=== PATIENT | female | born 1955 | race American Indian/Alaskan Native ===

== ENCOUNTER 2016-06-30 15:04 | Emergency (ER) | payer OTHER | END 2016-06-30 15:05 | disposition left against medical advice (07) | LOC: ED 15:04 | DX: R13.10 Dysphagia, unspecified (principal); Z53.21 Procedure and treatment not carried out due to patient leaving prior to being seen by health care provider ==

== ENCOUNTER 2016-11-17 06:22 | Day surgery (SDC) | payer MEDICARE, OTHER ==
[2016-11-17] MEDS ORDERED: ECOTRIN PO ONE (06:44)
[2016-11-17] MEDS ORDERED: NACL 0.9% 500 ML 500 ML IV SCH (07:00)
[2016-11-17 07:35] LABS: Basophils % (Auto) 0.7 % (0.0-1.8); Hematocrit 35.7 % (30.3-42.9); Hemoglobin 11.2 gm/dl (10.1-14.3); Mean Corpuscular HGB Conc 31 % (30-34); Mean Corpuscular Volume 77 fl (79-97); Platelet Count 237 K/mm3 (140-440); Red Blood Count 4.64 M/mm3 (3.65-5.03)
[2016-11-17 07:52] LABS: Anion Gap 14 mmol/L; BUN/Creatinine Ratio 18.88; Blood Urea Nitrogen 17 mg/dL (7-17); Calcium 9.7 mg/dL (8.4-10.2); Carbon Dioxide 29 mmol/L (22-30); Glucose 108 mg/dL (65-100); Potassium 4.4 mmol/L (3.6-5.0); Sodium 138 mmol/L (137-145)
[2016-11-17 07:53] LABS: INR 1.07 (0.87-1.13)
[2016-11-17 08:01] LABS: Mean Corpuscular Hemoglobin 24 pg (28-32)
[2016-11-17] MEDS ORDERED: NITROGLYCERIN SYRINGE 0 ML ONE (09:06)
[2016-11-17] MEDS ORDERED: CALAN ONE (09:06)
[2016-11-17] MEDS ORDERED: HEPARIN/NS 5000 UNIT/500ML(CATH LAB) 1,000 ML IR ONE (09:06)
[2016-11-17] MEDS ORDERED: XYLOCAINE 2% INFILTRATI ONE (09:06)
[2016-11-17] MEDS ORDERED: VERSED ONE (09:08)
[2016-11-17] MEDS: SUBLIMAZE ONE ×2 (09:15→09:18)
[2016-11-17] MEDS: HEPARIN 10,000 UNITS/10 ML ONE ×2 (09:17→09:20)
--- NOTE | 2016-11-17 10:37 | Cardiac Catherization Report ---
CARDIAC CATHETERIZATION INDICATION FOR PROCEDURE: The patient is a 60-year-old female with history of lupus and persistent chest pain with negative stress test in 2013 and 2013, continues to have chest pain, hence scheduled for cardiac catheterization for definitive diagnosis and treatment, pains have been mostly at rest while asleep. Her EKG showed sinus rhythm with low voltage complex. The patient's other diagnoses included in addition to lupus essential hypertension. The patient is aware of the procedure, potential complications, and the alternatives of therapy available. DESCRIPTION OF PROCEDURE: The patient was brought to the catheterization laboratory in a fasting condition. The right wrist area and forearm thoroughly cleansed with Betadine solution. Sterile drapes were applied. Local anesthesia was achieved using 2% Xylocaine. Right radial artery puncture was made using 21-gauge arterial puncture needle. Subsequently, 5 mg of intra-arterial verapamil and 3000 units of intravenous heparin given. Using multipurpose catheter, left coronary angiography was performed in multiple views followed by right coronary angiography in multiple views. Left ventriculogram was performed in [place] and [place] projection using hand injection. At the end of the procedure, catheter and sheath were removed. No untoward complications were noted. The patient tolerated the procedure well. Radial pressure bandage will be applied for hemostasis. Findings were explained to the patient. Following findings were noted. HEMODYNAMICS: 1. Opening aortic pressure 119/82. Left ventricular pressure 119/24. No gradient across the aortic valve. Estimated ejection fraction 50-55%, 2. Left ventriculogram done in [place] and [place] projection using hand injection showed normal sized left ventricle with essentially normal contractility, with mild hypokinesis of the inferoapical area. However, overall ejection fraction was found to be lower limits of normal, within normal limits. Mitral regurgitation could not be evaluated because of limited amount of dye injected. 3. Right coronary artery dominant vessel arises normally from right coronary cusp, angiographically smooth and normal. 4. Left coronary artery arises normally from left coronary cusp. Left main is very short, immediately dividing into LAD and circumflex branches. LAD and its diagonal branches and circumflex artery and branches are angiographically smooth and normal. FINAL IMPRESSION: 1. Normal sized left ventricle with normal contractility, ejection fraction lower limits of normal to normal. Elevated end diastolic pressure of 24 mL noted. 2. Angiographically normal coronary anatomy with caliber of the vessels being small. 3. Left ventricular ejection fraction is lower limits of normal to normal. End-diastolic pressure is elevated. 4. Right radial artery was used for access and no complications were noted. The patient will be continued on risk factor modification. JOB# [id number] VERONICA/QIAN
[2016-11-17] MEDS ORDERED: TYLENOL PO PRN (11:00)
[2016-11-17 12:24] VITALS: BP 108/80
--- NOTE | 2016-11-17 14:27 | Short Stay Summary ---
Short Stay Documentation Date of service: 11/17/16 - History H&P: obtained from office - Allergies and Medications Current Medications: Allergies Sulfa (Sulfonamide Antibiotics) Adverse Reaction (Verified 11/17/16 10:11) Rash, SWELLING OF THE TONGUE Home Medications Medication Instructions Recorded Confirmed Last Taken Type Cetirizine HCl [All Day Allergy] 10 mg PO DAILY 11/17/16 11/17/16 11/16/16 History Cyclobenzaprine [Flexeril] 1 - 2 tab PO DAILY 11/17/16 11/17/16 11/16/16 History Furosemide [Lasix TAB] 40 mg PO QDAY 11/17/16 11/17/16 11/16/16 History Gabapentin [Gabapentin] 300 mg PO TID 11/17/16 11/17/16 11/16/16 History Nortriptyline [Pamelor] 25 mg PO DAILY 11/17/16 11/17/16 11/16/16 History Prednisone [predniSONE (Martin) ER 5 mg PO QDAY 11/17/16 11/17/16 11/16/16 History TAB] Ranitidine HCl [Zantac 150 MG TAB] 150 mg PO BID 11/17/16 11/17/16 11/16/16 History cloNIDine [Catapres] 0.1 mg PO BID 11/17/16 11/17/16 11/16/16 History traMADol [Ultram] 50 mg PO BID PRN 11/17/16 11/17/16 11/16/16 History - Brief post op/procedure progress note Date of procedure: 11/17/16 Pre-op diagnosis: chest pain Post-op diagnosis: same Procedure: C - see cath report Anesthesia: local Estimated blood loss: none Condition: stable - Disposition Disposition: DC-01 TO HOME OR SELFCARE - Discharge Diagnoses (1) Chest pain Status: Chronic Qualifiers: Chest pain type: C Ischemic chest pain type: I (2) Hypertension Status: Chronic Qualifiers: Hypertension type: H (3) Lupus Status: Chronic Qualifiers: Lupus erythematosus form: L Systemic lupus erythematosus type: S Systemic lupus erythematosus organ involvement: S Short Stay Discharge Plan Activity: advance as tolerated Diet: low fat, low cholesterol, low salt Wound: open to air, keep clean and dry Follow up with: WILLIS GRIFFITHS MD [Staff Physician] - 7 Days (Meena, 11/30/2016 @ 15: 15) Forms: Cindy PCI D/C Instructions
== END 2016-11-17 12:45 | disposition home or self-care (01) ==
LOC: CATHLABREC 06:22
PROVIDERS: ATTEND Internal Medicine
DX: R07.9 Chest pain, unspecified (principal); R94.39 Abnormal result of other cardiovascular function study; I10 Essential (primary) hypertension; Z88.2 Allergy status to sulfonamides; Z98.890 Other specified postprocedural states; Z72.89 Other problems related to lifestyle
CPT/HCPCS: 36415; 80048; 85025; 85610; 85730; 93005; 93010; 93458; C1894; J1644; J2250; J3010; J7040; Q9967

== ENCOUNTER 2017-04-09 08:52 | Emergency (ER) | payer MEDICARE ==
[2017-04-09] MEDS ORDERED: ASPIRIN PO ONE (09:18)
[2017-04-09 09:35] LABS: Basophils % (Auto) 0.8 % (0.0-1.8); Eosinophils # (Auto) 0.2 K/mm3 (0.0-0.4); Eosinophils % (Auto) 4.7 % (0.0-4.3); Hematocrit 36.8 % (30.3-42.9); Hemoglobin 11.6 gm/dl (10.1-14.3); Lymphocytes # (Auto) 1.4 K/mm3 (1.2-5.4); Lymphocytes % (Auto) 33.7 % (13.4-35.0); Mean Corpuscular HGB Conc 32 % (30-34); Mean Corpuscular Volume 77 fl (79-97); Monocytes # (Auto) 0.4 K/mm3 (0.0-0.8); Monocytes % (Auto) 8.7 % (0.0-7.3); Platelet Count 257 K/mm3 (140-440); Red Blood Count 4.77 M/mm3 (3.65-5.03); Red Cell Distribution Width 14.5 % (13.2-15.2)
[2017-04-09 09:39] LABS: Mean Corpuscular Hemoglobin 24 pg (28-32)
[2017-04-09 10:00] LABS: BUN/Creatinine Ratio 19; Blood Urea Nitrogen 17 mg/dL (7-17); Calcium 9.8 mg/dL (8.4-10.2); Hemolysis Index 2
== END 2017-04-10 02:30 | disposition left against medical advice (07) ==
LOC: ED 08:52
DX: R07.9 Chest pain, unspecified (principal); Z53.21 Procedure and treatment not carried out due to patient leaving prior to being seen by health care provider
CPT/HCPCS: 36415; 80048; 84484; 85025; 93005; 93010

== ENCOUNTER 2017-07-07 13:00 | Inpatient (IN) | payer MEDICARE ==
--- NOTE | 2017-07-07 17:15 | Anesthesia Consultation ---
Anesthesia Consult and Med Hx - Airway Anesthetic Teeth Evaluation: Dentures ROM Head & Neck: Adequate Mental/Hyoid Distance: Adequate Mallampati Class: Class III Intubation Access Assessment: Possibly Difficult - Pulmonary Exam CTA: Yes - Cardiac Exam Cardiac Exam: RRR - Pre-Operative Health Status ASA Pre-Surgery Classification: ASA3 Proposed Anesthetic Plan: General Nerve Block: Femoral (no previous anesthesia problems; discussed general anesthesia with block for post-op pain; the surgeon prefers relaxation) - Pulmonary Hx Smoking: No Hx Pneumonia: Yes (03/2017) Hx Sleep Apnea: No (TERRY PRE SCREEN HIGH RISK.) - Cardiovascular System Hx Hypertension: Yes (X 20 YRS) - Central Nervous System Hx Neuromuscular Disorder: No (has fibromyalgia and lupus) Hx Back Pain: Yes (NECK AND BACK PAIN) Hx Psychiatric Problems: No - Endocrine Hx Renal Disease: Yes (CKD) - Hematic Hx Anemia: Yes - Other Systems Hx Cancer: No
[2017-07-14] MEDS ORDERED: ANCEF/STERILE WATER 2 GM/20 ML IV NR (00:01)
[2017-07-14] MEDS ORDERED: VERSED IV NR (07:00)
[2017-07-14] MEDS ORDERED: PEPCID IV NR (07:00)
[2017-07-14] MEDS ORDERED: NACL ONE (10:32)
[2017-07-14] MEDS ORDERED: MARCAINE 0.25% INFILTRATI ONE ×2 (10:32→15:45)
[2017-07-14] MEDS ORDERED: POLYMYXIN B SULFATE IV ONE (10:32)
[2017-07-14] MEDS ORDERED: NACL 0.9% 250ML 250 ML ONE (10:33)
[2017-07-14] MEDS ORDERED: BACITRACIN ONE (10:33)
[2017-07-14] MEDS ORDERED: CLORPACTIN WCS-90 IR ONE ×2 (10:33→15:45)
[2017-07-14] MEDS ORDERED: MORPHINE ONE ×2 (10:33→15:42)
[2017-07-14] MEDS ORDERED: XYLOCAINE 1%/ EPI 1:100,000 INFILTRATI ONE (10:34)
[2017-07-14] MEDS ORDERED: TORADOL ONE (10:37)
[2017-07-14] MEDS: NACL 0.9% 1000 ML 1,000 ML IV SCH ×2 (13:00→23:25)
[2017-07-14] MEDS ORDERED: DECADRON ONE ×2 (13:04→16:01)
[2017-07-14] MEDS ORDERED: SUBLIMAZE ONE (13:05)
[2017-07-14] MEDS ORDERED: DIPRIVAN 10 MG/ML IV ONE (13:25)
[2017-07-14] MEDS ORDERED: XYLOCAINE MPF 2% ONE (13:25)
[2017-07-14] MEDS ORDERED: ZEMURON IV ONE (13:25)
[2017-07-14] MEDS ORDERED: DILAUDID ONE (13:28)
[2017-07-14] MEDS ORDERED: TRANEXAMIC ACID ONE (13:39)
[2017-07-14] MEDS ORDERED: NACL 0.9% 200 ML ONE (13:40)
[2017-07-14] MEDS ORDERED: DILAUDID IV PRN (13:44)
--- NOTE | 2017-07-14 13:44 | Anesthesia Consultation ---
Anesthesia Consult and Med Hx Date of service: 07/14/17 - Airway Anesthetic Teeth Evaluation: Edentulous ROM Head & Neck: Adequate Mental/Hyoid Distance: Adequate Mallampati Class: Class III Intubation Access Assessment: Possibly Difficult - Pulmonary Exam CTA: Yes - Cardiac Exam Cardiac Exam: RRR - Pre-Operative Health Status ASA Pre-Surgery Classification: ASA3 Proposed Anesthetic Plan: General (Pt desaturated in Preop area with versed and fentanyl in low 90's on 2LNC. Ga with LMA ok. GERD controlled) - Pulmonary Hx Smoking: No Hx Pneumonia: Yes (03/2017) Hx Sleep Apnea: No (TERRY PRE SCREEN HIGH RISK.) - Cardiovascular System Hx Hypertension: Yes (X 20 YRS) - Central Nervous System Hx Neuromuscular Disorder: No (has fibromyalgia and lupus) Hx Back Pain: Yes (NECK AND BACK PAIN) Hx Psychiatric Problems: No - Endocrine Hx Renal Disease: Yes (CKD) - Hematic Hx Anemia: Yes - Other Systems Hx Cancer: No
--- NOTE | 2017-07-14 13:44 | Anesthesia Day of Surgery ---
Anesthesia Day of Surgery - Day of Surgery Patient Examined: Yes Patient H&P Reviewed: Yes Patient is NPO: Yes
--- NOTE | 2017-07-14 13:47 | Anesthesia Day of Surgery ---
Anesthesia Day of Surgery - Day of Surgery Patient Examined: Yes Patient H&P Reviewed: Yes Patient is NPO: Yes
[2017-07-14] MEDS ORDERED: TRAMADOL 50 MG PO PRN (14:48)
[2017-07-14] MEDS ORDERED: CATAPRES PO PRN (14:48)
[2017-07-14] MEDS ORDERED: PHENERGAN PR PRN (14:53)
[2017-07-14] MEDS ORDERED: NARCAN 0.4 MG/1 ML IV PRN ×3 (14:53→17:33)
[2017-07-14] MEDS ORDERED: ZOFRAN IV PRN (14:53)
[2017-07-14] MEDS ORDERED: SODIUM CHLORIDE FLUSH SYRINGE 10 ML IV SCH (15:00)
[2017-07-14] MEDS ORDERED: MIRALAX 3350 PO PRN (15:44)
[2017-07-14] MEDS ORDERED: BACITRACIN IR ONE (15:45)
[2017-07-14] MEDS ORDERED: MORPHINE IM ONE (15:45)
[2017-07-14] MEDS ORDERED: NACL 0.9% 1000 ML 1,000 ML ONE (16:02)
[2017-07-14] MEDS ORDERED: ZOFRAN ONE (17:13)
[2017-07-14] MEDS ORDERED: ROBINUL ONE (17:37)
[2017-07-14] MEDS ORDERED: NEOSTIGMINE ONE (17:38)
[2017-07-14] MEDS ORDERED: MORPHINE PCA 30MG/30ML IV SCH (18:00)
[2017-07-14] MEDS ORDERED: DILAUDID IM PRN (18:32)
[2017-07-14] MEDS ORDERED: ceFAZolin 2 GM in NACL 0.9% 100 ML IV SCH (22:00)
[2017-07-14] MEDS ORDERED: NON-FORMULARY (Ranitidine Hcl [Zantac 150 Mg Tab] 150 MG) PO SCH (22:00)
--- NOTE | 2017-07-14 22:44 | XRay Report ---
FINAL REPORT PROCEDURE: XR KNEE 1-2V RT TECHNIQUE: RIGHT knee radiographs, AP and lateral views. CPT 45962 HISTORY: POSTOP COMPARISON: No prior studies are available for comparison. FINDINGS: A total knee prosthesis is noted with satisfactory alignment. Air is identified in the suprapatellar region consistent with recent surgery. IMPRESSION: Satisfactory alignment of the knee prosthesis.
[2017-07-14] MEDS: NEURONTIN PO SCH (23:05)
[2017-07-14] MEDS: PEPCID PO SCH (23:05)
[2017-07-14] MEDS: COLACE PO SCH (23:06)
[2017-07-14] MEDS: NORCO 10/325 PO PRN (23:08)
[2017-07-14] MEDS: ANCEF/STERILE WATER 2 GM/20 ML 2 GM/20 ML SYRINGE IV SCH (23:39)
[2017-07-15] MEDS: ANCEF/STERILE WATER 2 GM/20 ML 2 GM/20 ML SYRINGE IV SCH ×2 (04:22→22:19)
[2017-07-15] MEDS: NORCO 10/325 PO PRN ×3 (04:46→22:14)
--- NOTE | 2017-07-15 05:07 | Operative Report ---
PREOPERATIVE DIAGNOSES: 1. Severe advanced osteoarthritis, right knee joint. 2. Genu valgum deformity. 3. Stiff right knee joint. POSTOPERATIVE DIAGNOSES: 1. Severe advanced osteoarthritis, right knee joint. 2. Genu valgum deformity. 3. Stiff right knee joint. 4. Morbid obesity. PROCEDURES PERFORMED: 1. Right total knee replacement. 2. Partial synovectomy, right knee joint. SURGEON: Familia Mittal M.D. [employer]UDIES PROFESSOR: Regino Ackerman, operative tech and Aletha Velez, heat transfer technician. IMPLANTS USED: Castellano and Nephew Legion Oxinium femoral component, size 6 narrow right side, prolong Poly-S, tibial tray size 5 asymmetric tibial base plate. Polyethylene liner 9 mm highly cross-linked posterior stabilized. Patella 32 mm, 3 post height, 7.5 mm thick. BRIEF HISTORY: The patient had a painful arthritic right knee, failed conservative treatment, opted to undergo surgical intervention, risks and benefit discussed, informed consent obtained, and brought to the hospital for the above procedure. DETAILS OF THE OPERATIVE REPORT: The patient was taken to the operating, who underwent general endotracheal anesthesia. Before general endotracheal anesthesia all the bony prominences were carefully padded, placed supine on the operating table. Thigh tourniquet was placed. Right knee, right lower extremity prepped and draped in sterile fashion. Leg elevated, tourniquet inflated to 350 mmHg. The patient was given 2 grams Ancef half an hour before the procedure along with a gram of TXA 10 minutes before the incision. A longitudinal incision made over anterior aspect of the knee, exposing the extensor mechanism. Arthrotomy was performed. Patella displaced laterally. Gross finding revealed severe advanced degenerative arthritis, tricompartmental with synovial hypertrophy proliferation. Capsular release was performed to correct the fixed angular deformity. However, no medial release was performed only just a minimal release to put the Z-retractor in place to protect the collateral ligament on the medial side. A drill was used to open the femoral canal. Distal intramedullary femoral cutting guide was placed. Distal femur resected at 5 degree valgus angle. Epicondylar access apex determined. Femoral sizing guide was placed, appropriate components selected. Anteroposterior condyles were then resected with oscillating saw. Extramedullary tibial cutting guide was placed, proximal tibia resected perpendicular to the long axis of tibia. Minimum bone resection was performed. Tightness on the lateral side was encountered and the capsule was released on the lateral side of the tibia, which helped to balance the knee in flexion and extension on the lateral side. Once this was done, tibia was then prepared by tibial reaming and broach system by placing the tibial tray in proper position, proper external rotation and packed in place. Excess cement was removed. Femur was then prepared for a box with Castellano and Nephew trial femur using reaming and punch technique. Patella was prepared with patellar reaming system prepared for 3 post-patella. Synovium around the patella was excised. Prepatellar thickness 22 mm. Post-patellar thickness somewhere between 21 mm to 22 mm. Trialing was performed with 9 poly with great stability, full extension, full flexion, stable throughout range of motion. Patella tracked central. We trialed with regular ____ in a semi-constrained liner. We had much better stability given her valgus deformity and minimal stretched out medial side. We had great stability, full extension, full flexion, stable throughout range of motion. Trial components were then removed, thoroughly washed the knee area with antibiotic-soaked normal saline followed by normal saline and Clorpactin irrigation as well and covered by normal saline irrigation. Significant sclerotic proximal lateral tibia and lateral femur and for that drill holes were made with 2.5 drill. The patient had a hypoplastic lateral femoral condyle and we used about 5-degree external rotation on the femoral side as well. Once thorough washing was performed, cementing of the knee was performed. Tibia was cemented first, set in proper position, proper external rotation and packed in place. Excess cement was removed. Femur was then cemented in proper position, proper external rotation and packed in place. Excess cement was removed. Cementing of the patella was performed and compression placed. Excess cement was removed. Trial liner was then placed, once the cement was hardened, real tibial articulating surface was implanted. Knee moved through range of motion and found to be extremely stable. Tourniquet released. Hemostasis achieved. No active bleeder as such. Arthrotomy closed with a #2 Quill suture and 0 Vicryl interrupted sutures. Subcutaneous tissue was then closed with 0 and 2-0 Vicryl interrupted suture. Skin was closed with Monocryl. Aquacel dressing done. The patient tolerated the procedure well, shifted to the recovery room in stable condition. Sponge and needle count was correct. JOB# [id number] KATHERIN/QIAN
[2017-07-15 05:09] LABS: Hematocrit 34.4 % (30.3-42.9); Hemoglobin 10.7 gm/dl (10.1-14.3)
[2017-07-15 05:22] LABS: INR 1.05 (0.87-1.13)
[2017-07-15 05:26] LABS: BUN/Creatinine Ratio 16; Blood Urea Nitrogen 13 mg/dL (7-17); Calcium 8.5 mg/dL (8.4-10.2); Hemolysis Index 4
[2017-07-15] MEDS: NEURONTIN PO SCH ×3 (08:09→22:18)
[2017-07-15] MEDS ORDERED: [UNRECOGNIZED DRUG - OTHER] PO SCH (10:00)
[2017-07-15] MEDS ORDERED: NON-FORMULARY (Fexofenadine Hcl [Allegra Allergy] 180 MG) PO SCH (10:00)
[2017-07-15] MEDS ORDERED: FERROUS SULFATE 324 MG PO SCH (10:00)
[2017-07-15] MEDS ORDERED: NON-FORMULARY (Losartan/Hydrochlorothiazide [Losartan-Hctz 100-25 Mg Tab] 1 EACH) PO SCH (10:00)
[2017-07-15] MEDS ORDERED: NON-FORMULARY (Duloxetine Hcl [Cymbalta] 60 MG) PO SCH (10:00)
[2017-07-15] MEDS: CYMBALTA PO SCH (10:22)
[2017-07-15] MEDS: COZAAR PO SCH (10:28)
[2017-07-15] MEDS: CLARITIN PO SCH (10:29)
[2017-07-15] MEDS: PEPCID PO SCH ×2 (10:38→22:15)
[2017-07-15] MEDS: FEOSOL PO SCH (10:38)
[2017-07-15] MEDS: LASIX PO SCH (10:38)
[2017-07-15] MEDS: ELIQUIS PO SCH ×2 (10:39→22:15)
[2017-07-15] MEDS: PAMELOR PO SCH (10:39)
[2017-07-15] MEDS: COLACE PO SCH ×2 (10:40→22:15)
[2017-07-15] MEDS: MIRALAX 3350 PO SCH (10:41)
[2017-07-15] MEDS: HCTZ PO SCH (11:28)
--- NOTE | 2017-07-15 12:54 | Progress Note ---
Subjective Date of service: 07/15/17 Interval history: pod1, s/p TKA right side, No comaplints AVSS, NVI DRESSING DRY PATIENT tends to keep the knee bend and i taught her to keep pillow under the ankle and do posterior capsular /hamstring stretch for knee extension, and she was able to get it to full extension. Patient comlimented me today saying that i did a very good job on her. Bree Causey to see the patient DC plan only once clear by medicine and PT Objective - Constitutional Vitals: Vital Signs - 12hr 07/15/17 07/15/17 07/15/17 01:55 03:55 04:34 Temperature 98.7 F Pulse Rate 102 H Respiratory 18 18 18 Rate Blood Pressure 127/85 [Right] O2 Sat by Pulse 100 Oximetry 07/15/17 07/15/17 07/15/17 05:55 07:55 08:00 Temperature 98.8 F Pulse Rate 89 Respiratory 18 18 20 Rate Blood Pressure 111/74 [Right] O2 Sat by Pulse 97 Oximetry 07/15/17 12:00 Temperature 98.6 F Pulse Rate 108 H Respiratory 20 Rate Blood Pressure 149/71 [Right] O2 Sat by Pulse 94 Oximetry - Labs CBC & Chem 7: 07/15/17 04:33 07/15/17 04:33 Labs: Abnormal lab results 07/15/17 Range/Units 04:33 Sodium 135 L (137-145) mmol/L Glucose 143 H (65-100) mg/dL
[2017-07-15] MEDS ORDERED: NACL 0.9% 1000 ML 1,000 ML ONE (13:30)
[2017-07-15] MEDS: NACL 0.9% 1000 ML 1,000 ML IV SCH (13:44)
--- NOTE | 2017-07-15 19:49 | Consultation ---
History of Present Illness - Reason for Consult Consult date: 07/15/17 medical management Requesting physician: CANDELARIO HOGAN - History of Present Illness History of present illness: 61-year-old -English female--- status post right total knee arthroplasty --- postop doing well. Complains of dry mouth. Patient has Sjogren syndrome. No shortness of breath no chest pain. Postop knee pain is about 6 on a scale of 1-10. No fever. Past History Past Medical History: anemia, hypertension, other (constipation. Edema allergy rhinitis) Past Surgical History: total knee replacement Social history: lives with family, full code Family history: hypertension Medications and Allergies Allergies Allergy/AdvReac Type Severity Reaction Status Date / Time Sulfa (Sulfonamide AdvReac Rash, Verified 11/17/16 10:11 Antibiotics) SWELLING OF THE TONGUE Home Medications Medication Instructions Recorded Confirmed Last Taken Type Cyclobenzaprine [Flexeril] 1 - 2 tab PO PRN PRN 11/17/16 07/06/17 11/16/16 History Furosemide [Lasix TAB] 40 mg PO QDAY 11/17/16 07/06/17 11/16/16 History Gabapentin 600 mg PO TID 11/17/16 07/14/17 07/13/17 16:00 History Nortriptyline [Pamelor] 25 mg PO DAILY 11/17/16 07/14/17 07/13/17 09:00 History Prednisone [predniSONE (Martin) ER 5 mg PO QDAY 11/17/16 07/14/17 06/30/17 09:00 History TAB] Ranitidine HCl [Zantac 150 MG TAB] 150 mg PO BID 11/17/16 07/14/17 07/12/17 09: 00 History cloNIDine [Catapres] 0.1 mg PO PRN PRN 11/17/16 07/14/17 07/12/17 09:00 History traMADol [Ultram] 50 mg PO PRN PRN 11/17/16 07/14/17 07/12/17 09:00 History Aspirin/Acetaminophen/Caffeine 1 each PO DAILY 07/06/17 07/14/17 06/30/17 09:00 History [Kylah's Ex-Str Powder Packet] Ferrous Sulfate 324 mg PO DAILY 07/06/17 07/14/17 07/06/17 09:00 History Fexofenadine HCl [[place] Allergy] 180 mg PO DAILY 07/06/17 07/06/17 Unknown History Docusate Sodium [Stool Softener] 100 mg PO BID 07/07/17 07/07/17 Unknown History Duloxetine HCl [Cymbalta] 60 mg PO DAILY 07/07/17 07/14/17 07/12/17 09:00 History Losartan/Hydrochlorothiazide 1 each PO DAILY 07/07/17 07/14/17 07/14/17 10:00 History [Losartan-Hctz 100-25 mg Tab] Polyethylene Glycol 3350 1,700 gm PO DAILY 07/07/17 07/14/17 Unknown History [Laxaclear] Active Meds: Active Medications Acetaminophen/Hydrocodone Bitart (Folcroft 10/325) 1 each PO Q4H PRN PRN Reason: Pain, Moderate (4-6) Last Admin: 07/15/17 09:41 Dose: 1 each Apixaban (Eliquis) 2.5 mg PO Q12HR [facility]; Protocol Last Admin: 07/15/17 10:39 Dose: 2.5 mg Clonidine HCl (Catapres) 0.1 mg PO BID PRN PRN Reason: Hypertension Docusate Sodium (Colace) 100 mg PO BID [facility] Last Admin: 07/15/17 10:40 Dose: 100 mg Duloxetine HCl (Cymbalta) 60 mg PO QDAY [facility] Last Admin: 07/15/17 10:22 Dose: 60 mg Famotidine (Pepcid) 20 mg IV PREOP NR Stop: 07/15/17 23:59 Last Admin: 07/14/17 13:03 Dose: 20 mg Famotidine (Pepcid) 20 mg PO BID [facility] Last Admin: 07/15/17 10:38 Dose: 20 mg Ferrous Sulfate (Feosol) 325 mg PO QDAY [facility] Last Admin: 07/15/17 10:38 Dose: 325 mg Furosemide (Lasix) 40 mg PO QDAY [facility] Last Admin: 07/15/17 10:38 Dose: 40 mg Gabapentin (Neurontin) 600 mg PO TID [facility] Last Admin: 07/15/17 13:43 Dose: 600 mg Hydrochlorothiazide (Hctz) 25 mg PO QDAY [facility] Last Admin: 07/15/17 11:28 Dose: Not Given Hydromorphone HCl (Dilaudid) 0.5 mg IM Q10MIN PRN PRN Reason: Pain , Severe (7-10) Sodium Chloride (Nacl 0.9% 1000 Ml) 1,000 mls @ 100 mls/hr IV DIRECT JENNIFER Stop: 07/15/17 23:59 Last Admin: 07/15/17 13:44 Dose: 100 mls/hr Loratadine (Claritin) 10 mg PO DAILY [facility] Last Admin: 07/15/17 10:29 Dose: Not Given Losartan Potassium (Cozaar) 100 mg PO QDAY [facility] Last Admin: 07/15/17 10:28 Dose: 100 mg Midazolam HCl (Versed) 2 mg IV PREOP NR Stop: 07/15/17 23:59 Morphine Sulfate (Morphine Spring Clipper 30mg/30ml) 0 mg IV DIRECT JENNIFER; Protocol Last Admin: 07/14/17 19:55 Dose: 1.5 cartstart Naloxone HCl (Narcan 0.4 Mg/1 Ml) 0.1 mg IV Q2MIN PRN PRN Reason: Res Rate </= 8 or 02 SAT < 92% Naloxone HCl (Narcan 0.4 Mg/1 Ml) 0.1 mg IV Q2MIN PRN PRN Reason: Res Rate </= 8 or 02 SAT < 92% Nortriptyline HCl (Pamelor) 25 mg PO DAILY [facility] Last Admin: 07/15/17 10:39 Dose: 25 mg Ondansetron HCl (Zofran) 4 mg IV Q8H PRN PRN Reason: Nausea And Vomiting Polyethylene Glycol (Miralax 3350) 17 gm PO QDAY [facility] Last Admin: 07/15/17 10:41 Dose: 17 gm Promethazine HCl (Phenergan) 25 mg [place] Q6H PRN PRN Reason: Nausea And Vomiting Sodium Chloride (Sodium Chloride Flush Syringe 10 Ml) 10 ml IV PRN [facility] Review of Systems All systems: negative Exam - Constitutional Vitals: Temp Pulse Resp BP Pulse Ox 98.9 F 102 H 20 131/76 98 07/15/17 15:00 07/15/17 15:00 07/15/17 15:00 07/15/17 15:00 07/15/17 15:00 General appearance: Present: no acute distress, well-nourished - EENT Eyes: Present: PERRL ENT: hearing intact, clear oral mucosa - Neck Neck: Present: supple, normal ROM - Respiratory Respiratory effort: normal Respiratory: bilateral: CTA - Cardiovascular Heart rate: 78 Rhythm: regular Heart Sounds: Present: S1 & S2. Absent: rub, click - Extremities Extremities: no ischemia, pulses intact, pulses symmetrical, No edema, abnormal (right knee range of motion limited secondary to total knee arthroplasty at this point) Peripheral Pulses: within normal limits - Abdominal General gastrointestinal: Present: soft, non-tender, non-distended, normal bowel sounds Female genitourinary: Present: normal - Integumentary Integumentary: Present: clear, warm, dry - Musculoskeletal Musculoskeletal: gait normal, strength equal bilaterally - Psychiatric Psychiatric: appropriate mood/affect, intact judgment & insight - Neurologic Neurologic: CNII-XII intact, moves all extremities Results - Labs CBC & Chem 7: 07/15/17 04:33 07/15/17 04:33 Labs: Abnormal lab results 07/15/17 Range/Units 04:33 Sodium 135 L (137-145) mmol/L Glucose 143 H (65-100) mg/dL Assessment and Plan - Patient Problems (1) Hypertension Current Visit: No Status: Chronic Qualifiers: Hypertension type: essential hypertension Qualified Code(s): I10 - Essential (primary) hypertension Plan to address problem: Continue losartan and hydrochlorothiazide (2) GERD (gastroesophageal reflux disease) Current Visit: Yes Status: Chronic Qualifiers: Esophagitis presence: without esophagitis Qualified Code(s): K21.9 - Gastro -esophageal reflux disease without esophagitis Plan to address problem: Continue ranitidine 150 twice a day (3) Depression Current Visit: Yes Status: Chronic Qualifiers: Depression Type: unspecified Qualified Code(s): F32.9 - Major depressive disorder, single episode, unspecified Plan to address problem: Continue Cymbalta 60 mg once a day (4) Allergic rhinitis Current Visit: Yes Status: Chronic Qualifiers: Allergic rhinitis trigger: pollen Allergic rhinitis seasonality: non- seasonal Qualified Code(s): J30.1 - Allergic rhinitis due to pollen Plan to address problem: Continue fexofenadine 180 mg once a day (5) Pedal edema Current Visit: Yes Status: Chronic Plan to address problem: continue Lasix. We will add potassium. (6) History of total knee arthroplasty Current Visit: Yes Status: Acute Qualifiers: Laterality: right Qualified Code(s): Z96.651 - Presence of right artificial knee joint Plan to address problem: Continue physical therapy and pain management (7) DVT prophylaxis Current Visit: Yes Status: Acute Plan to address problem: On ELIQUIS
[2017-07-15] MEDS ORDERED: TYLENOL PO PRN (20:46)
[2017-07-15] MEDS: K-DUR PO SCH (22:23)
[2017-07-16 05:17] LABS: Basophils % (Auto) 0.4 % (0.0-1.8); Eosinophils % (Auto) 0.1 % (0.0-4.3); Hemoglobin 9.8 gm/dl (10.1-14.3); Lymphocytes # (Auto) 1.5 K/mm3 (1.2-5.4); Lymphocytes % (Auto) 15.5 % (13.4-35.0); Mean Corpuscular HGB Conc 31 % (30-34); Mean Corpuscular Volume 78 fl (79-97); Monocytes # (Auto) 1.3 K/mm3 (0.0-0.8); Monocytes % (Auto) 13.6 % (0.0-7.3); Platelet Count 233 K/mm3 (140-440); Red Blood Count 3.97 M/mm3 (3.65-5.03); Red Cell Distribution Width 14.4 % (13.2-15.2)
[2017-07-16 05:21] LABS: Mean Corpuscular Hemoglobin 25 pg (28-32)
[2017-07-16] MEDS: NORCO 10/325 PO PRN ×3 (05:48→21:51)
[2017-07-16 06:28] LABS: Alanine Aminotransferase 17 units/L (7-56); Albumin 3.6 g/dL (3.9-5); BUN/Creatinine Ratio 14; Blood Urea Nitrogen 10 mg/dL (7-17); Calcium 8.9 mg/dL (8.4-10.2); Hemolysis Index 16
[2017-07-16] MEDS ORDERED: NACL 0.9% 250ML 250 ML ONE (10:36)
[2017-07-16] MEDS: COZAAR PO SCH (10:47)
[2017-07-16] MEDS: FEOSOL PO SCH (10:48)
[2017-07-16] MEDS: ELIQUIS PO SCH ×2 (10:49→21:48)
[2017-07-16] MEDS: K-DUR PO SCH (10:51)
[2017-07-16] MEDS: PEPCID PO SCH ×2 (10:52→21:47)
[2017-07-16] MEDS: NEURONTIN PO SCH ×2 (10:56→20:53)
[2017-07-16] MEDS: CLARITIN PO SCH (10:57)
[2017-07-16] MEDS: COLACE PO SCH ×2 (10:58→21:48)
[2017-07-16] MEDS: CYMBALTA PO SCH (10:58)
[2017-07-16] MEDS: HCTZ PO SCH (10:58)
[2017-07-16] MEDS: LASIX PO SCH (10:59)
[2017-07-16] MEDS: MIRALAX 3350 PO SCH (10:59)
[2017-07-16] MEDS: PAMELOR PO SCH (11:02)
[2017-07-16] MEDS ORDERED: MORPHINE IV PRN (12:08)
--- NOTE | 2017-07-16 12:10 | Progress Note ---
Subjective Date of service: 07/16/17 Interval history: tient having some pin afetr she did some PT, She feels little week and have no help at home. She feels that GABAPENTIN gave her some possible shaking.. right knee dressing is dry NVI no redness in the knee area. Calf soft NT Patient elects to stay in hospital. pain control DVT prop- Eliquis Ice pacs Medical management and pain management per Dr Giron administrative services specialist for [facility]. Patient told me she will think about it and let us know by tomorrow. Objective Vital signs: Vital Signs - 12hr 07/16/17 07/16/17 07/16/17 01:55 04:52 07:40 Temperature 99.6 F 98.5 F Pulse Rate 112 H 114 H Respiratory 18 20 18 Rate Blood Pressure 124/63 128/74 O2 Sat by Pulse 91 91 Oximetry 07/16/17 10:47 Temperature Pulse Rate 114 H Respiratory Rate Blood Pressure 128/74 O2 Sat by Pulse Oximetry - Labs CBC & BMP: 07/16/17 04:26 07/16/17 04:26 Labs: Abnormal lab results 07/16/17 07/16/17 Range/Units 04:26 04:26 Hgb 9.8 L (10.1-14.3) gm/dl MCV 78 L (79-97) fl MCH 25 L (28-32) pg [place] % (Auto) 13.6 H (0.0-7.3) % [place] # 1.3 H (0.0-0.8) K/mm3 Seg Neutrophils % 70.4 H (40.0-70.0) % Sodium 133 L (137-145) mmol/L Chloride 96.6 L (98-107) mmol/L Glucose 129 H (65-100) mg/dL Albumin 3.6 L (3.9-5) g/dL
--- NOTE | 2017-07-16 12:11 | Progress Note ---
Subjective Date of service: 07/16/17 Interval history: right knee she is bending from 0-90 deg. Objective Vital signs: Vital Signs - 12hr 07/16/17 07/16/17 07/16/17 01:55 04:52 07:40 Temperature 99.6 F 98.5 F Pulse Rate 112 H 114 H Respiratory 18 20 18 Rate Blood Pressure 124/63 128/74 O2 Sat by Pulse 91 91 Oximetry 07/16/17 10:47 Temperature Pulse Rate 114 H Respiratory Rate Blood Pressure 128/74 O2 Sat by Pulse Oximetry - Labs CBC & BMP: 07/16/17 04:26 07/16/17 04:26 Labs: Abnormal lab results 07/16/17 07/16/17 Range/Units 04:26 04:26 Hgb 9.8 L (10.1-14.3) gm/dl MCV 78 L (79-97) fl MCH 25 L (28-32) pg [place] % (Auto) 13.6 H (0.0-7.3) % [place] # 1.3 H (0.0-0.8) K/mm3 Seg Neutrophils % 70.4 H (40.0-70.0) % Sodium 133 L (137-145) mmol/L Chloride 96.6 L (98-107) mmol/L Glucose 129 H (65-100) mg/dL Albumin 3.6 L (3.9-5) g/dL
[2017-07-16] MEDS: ROXICODONE PO PRN (14:08)
[2017-07-16] MEDS: PERCOCET 5/325 PO PRN (14:09)
--- NOTE | 2017-07-16 19:04 | Progress Note ---
Assessment and Plan Assessment and plan: --Status post total knee arthroplasty; Continue postoperative care, orthopedic following PT OT rehabilitation --Hypertension; moderate control Continue current antihypertensives and when necessary medications --Gastroesophageal reflux disease; stable on ranitidine --History of depression; continue antidepression medications and supportive care --Allergic rhinitis; symptoms significantly improved with antihistamines --DVT prophylaxis; Eliquis 2.5 mg every 12 hours Continue physical therapy occupational therapy DC planning. Case management; possible home health and home PT When medically stable Plan of care reviewed with the patient, family member at the bedside and the nurse History Interval history: Patient seen and examined medical record reviewed No new events reported by the nursing staff Tolerated physical therapy today Complaints of pain Alert awake oriented 3 Vital signs stable Hospitalist Physical - Constitutional Vitals: Temp Pulse Resp BP Pulse Ox 97.7 F 103 H 18 127/65 99 07/16/17 16:24 07/16/17 16:24 07/16/17 16:24 07/16/17 16:24 07/16/17 16:24 General appearance: Present: no acute distress, well-nourished - EENT Eyes: Present: PERRL, EOM intact - Neck Neck: Present: supple, normal ROM - Respiratory Respiratory effort: normal Respiratory: negative: rales, rhonchi, wheezing - Cardiovascular Rhythm: regular Heart Sounds: Present: S1 & S2 - Extremities Extremities: no ischemia, No edema - Abdominal General gastrointestinal: soft, non-tender, non-distended, normal bowel sounds - Integumentary Integumentary: Present: clear, warm - Psychiatric Psychiatric: appropriate mood/affect, cooperative - Neurologic Neurologic: CNII-XII intact, moves all extremities Results - Labs CBC & Chem 7: 07/16/17 04:26 07/16/17 04:26 Labs: Laboratory Last Values WBC 9.9 K/mm3 (4.5-11.0) 07/16/17 04:26 RBC 3.97 M/mm3 (3.65-5.03) 07/16/17 04:26 Hgb 9.8 gm/dl (10.1-14.3) L 07/16/17 04:26 Hct 31.0 % (30.3-42.9) 07/16/17 04:26 MCV 78 fl (79-97) L 07/16/17 04:26 MCH 25 pg (28-32) L 07/16/17 04: MCHC 31 % (30-34) 07/16/17 04: RDW 14.4 % (13.2-15.2) 07/16/17 04:26 Plt Count 233 K/mm3 (140-440) 07/16/17 04:26 Lymph % (Auto) 15.5 % (13.4-35.0) 07/16/17 04:26 Humphreys % (Auto) 13.6 % (0.0-7.3) H 07/16/17 04:26 Eos % (Auto) 0.1 % (0.0-4.3) 07/16/17 04: Baso % (Auto) 0.4 % (0.0-1.8) 07/16/17 04: Lymph # 1.5 K/mm3 (1.2-5.4) 07/16/17 04: Humphreys # 1.3 K/mm3 (0.0-0.8) H 07/16/17 04: Eos # 0.0 K/mm3 (0.0-0.4) 07/16/17 04: Baso # 0.0 K/mm3 (0.0-0.1) 07/16/17 04:26 Seg Neutrophils % 70.4 % (40.0-70.0) H 07/16/17 04: Seg Neutrophils # 7.0 K/mm3 (1.8-7.7) 07/16/17 04: PT 14.3 Sec. (12.2-14.9) 07/15/17 04:33 INR 1.05 (0.87-1.13) 07/15/17 04:33 Sodium 133 mmol/L (137-145) L 07/16/17 04:26 Potassium 4.1 mmol/L (3.6-5.0) 07/16/17 04:26 Chloride 96.6 mmol/L (98-107) L 07/16/17 04:26 Carbon Dioxide 22 mmol/L (22-30) 07/16/17 04:26 Anion Gap 19 mmol/L 07/16/17 04:26 BUN 10 mg/dL (7-17) 07/16/17 04:26 Creatinine 0.7 mg/dL (0.7-1.2) 07/16/17 04:26 Estimated GFR > 60 ml/min 07/16/17 04:26 BUN/Creatinine Ratio 14 % 07/16/17 04:26 Glucose 129 mg/dL (65-100) H 07/16/17 04:26 Calcium 8.9 mg/dL (8.4-10.2) 07/16/17 04:26 Total Bilirubin 0.60 mg/dL (0.1-1.2) 07/16/17 04:26 AST 19 units/L (5-40) 07/16/17 04:26 ALT 17 units/L (7-56) 07/16/17 04:26 Alkaline Phosphatase 52 units/L (35-129) 07/16/17 04:26 Total Protein 6.8 g/dL (6.3-8.2) 07/16/17 04:26 Albumin 3.6 g/dL (3.9-5) L 07/16/17 04:26 Albumin/Globulin Ratio 1.1 % 07/16/17 04:26 Blood Type B POSITIVE 07/14/17 11:55 Antibody Screen Negative 07/14/17 11:55
[2017-07-17] MEDS: NORCO 10/325 PO PRN ×3 (04:00→22:11)
[2017-07-17] MEDS: ROXICODONE PO PRN ×2 (06:11→10:58)
[2017-07-17] MEDS: LASIX PO SCH (08:14)
[2017-07-17] MEDS: HCTZ PO SCH (08:14)
[2017-07-17] MEDS: COZAAR PO SCH (08:15)
[2017-07-17] MEDS: FEOSOL PO SCH (10:42)
[2017-07-17] MEDS: K-DUR PO SCH (10:43)
[2017-07-17] MEDS: CLARITIN PO SCH (10:43)
[2017-07-17] MEDS: PEPCID PO SCH ×2 (10:43→22:10)
[2017-07-17] MEDS: CYMBALTA PO SCH (10:44)
[2017-07-17] MEDS: NEURONTIN PO SCH ×3 (10:45→20:00)
[2017-07-17] MEDS: COLACE PO SCH ×2 (10:45→22:00)
[2017-07-17] MEDS: MIRALAX 3350 PO SCH (10:45)
[2017-07-17] MEDS: PAMELOR PO SCH (10:49)
--- NOTE | 2017-07-17 14:18 | Progress Note ---
Assessment and Plan Assessment and plan: --Status post total knee arthroplasty; Continue postoperative care, orthopedic following PT OT rehabilitation --Hypertension; moderate control Continue current antihypertensives and when necessary medications --Gastroesophageal reflux disease; stable on ranitidine --History of depression; continue antidepression medications and supportive care --Allergic rhinitis; symptoms significantly improved with antihistamines --DVT prophylaxis; Eliquis 2.5 mg every 12 hours Continue physical therapy occupational therapy DC planning. Case management; possible home health and home PT When medically stable Plan of care reviewed with the patient, family member at the bedside and the nurse Patient is medically stable for discharge with home health /home PT History Interval history: Patient seen and examined medical records reviewed Tolerating physical therapy, no new complaints Vital signs stable A most Hospitalist Physical - Constitutional Vitals: Temp Pulse Resp BP Pulse Ox 98.6 F 111 H 18 128/75 99 07/17/17 11:01 07/17/17 11:01 07/17/17 11:58 07/17/17 11:01 07/17/17 11:01 General appearance: Present: no acute distress, well-nourished, obese - EENT Eyes: Present: PERRL, EOM intact - Neck Neck: Present: supple, normal ROM - Respiratory Respiratory effort: normal Respiratory: negative: rales, rhonchi, wheezing - Cardiovascular Rhythm: regular Heart Sounds: Present: S1 & S2 - Extremities Extremities: no ischemia, No edema Extremity abnormal: other (dressing in place) - Abdominal General gastrointestinal: soft, non-tender, non-distended, normal bowel sounds - Integumentary Integumentary: Present: clear, warm - Psychiatric Psychiatric: appropriate mood/affect, cooperative - Neurologic Neurologic: CNII-XII intact, moves all extremities Results - Labs CBC & Chem 7: 07/16/17 04:26 07/16/17 04:26 Labs: Laboratory Last Values WBC 9.9 K/mm3 (4.5-11.0) 07/16/17 04:26 RBC 3.97 M/mm3 (3.65-5.03) 07/16/17 04:26 Hgb 9.8 gm/dl (10.1-14.3) L 07/16/17 04:26 Hct 31.0 % (30.3-42.9) 07/16/17 04:26 MCV 78 fl (79-97) L 07/16/17 04: MCH 25 pg (28-32) L 07/16/17 04: MCHC 31 % (30-34) 07/16/17 04:26 RDW 14.4 % (13.2-15.2) 07/16/17 04:26 Plt Count 233 K/mm3 (140-440) 07/16/17 04:26 Lymph % (Auto) 15.5 % (13.4-35.0) 07/16/17 04:26 [place]ette % (Auto) 13.6 % (0.0-7.3) H 07/16/17 04:26 Eos % (Auto) 0.1 % (0.0-4.3) 07/16/17 04:26 Baso % (Auto) 0.4 % (0.0-1.8) 07/16/17 04: Lymph # 1.5 K/mm3 (1.2-5.4) 07/16/17 04: [place] # 1.3 K/mm3 (0.0-0.8) H 07/16/17 04:26 Eos # 0.0 K/mm3 (0.0-0.4) 07/16/17 04:26 Baso # 0.0 K/mm3 (0.0-0.1) 07/16/17 04:26 Seg Neutrophils % 70.4 % (40.0-70.0) H 07/16/17 04: Seg Neutrophils # 7.0 K/mm3 (1.8-7.7) 07/16/17 04:26 PT 14.3 Sec. (12.2-14.9) 07/15/17 04:33 INR 1.05 (0.87-1.13) 07/15/17 04:33 Sodium 133 mmol/L (137-145) L 07/16/17 04:26 Potassium 4.1 mmol/L (3.6-5.0) 07/16/17 04:26 Chloride 96.6 mmol/L (98-107) L 07/16/17 04:26 Carbon Dioxide 22 mmol/L (22-30) 07/16/17 04:26 Anion Gap 19 mmol/L 07/16/17 04:26 BUN 10 mg/dL (7-17) 07/16/17 04:26 Creatinine 0.7 mg/dL (0.7-1.2) 07/16/17 04:26 Estimated GFR > 60 ml/min 07/16/17 04:26 BUN/Creatinine Ratio 14 % 07/16/17 04:26 Glucose 129 mg/dL (65-100) H 07/16/17 04:26 Calcium 8.9 mg/dL (8.4-10.2) 07/16/17 04:26 Total Bilirubin 0.60 mg/dL (0.1-1.2) 07/16/17 04:26 AST 19 units/L (5-40) 07/16/17 04:26 ALT 17 units/L (7-56) 07/16/17 04:26 Alkaline Phosphatase 52 units/L (35-129) 07/16/17 04:26 Total Protein 6.8 g/dL (6.3-8.2) 07/16/17 04:26 Albumin 3.6 g/dL (3.9-5) L 07/16/17 04:26 Albumin/Globulin Ratio 1.1 % 07/16/17 04:26 Blood Type B POSITIVE 07/14/17 11:55 Antibody Screen Negative 07/14/17 11:55
[2017-07-17] MEDS: ELIQUIS PO SCH ×2 (14:36→22:10)
[2017-07-17] MEDS ORDERED: MYLICON PO PRN (16:00)
--- NOTE | 2017-07-17 18:22 | Progress Note ---
Subjective Date of service: 07/17/17 Interval history: patient doing fine, no compalints pain is under control with meds,. dressing dry no redness, calf coft NT ankle and knee exercises taught DC planning once clear by medicine and PT and once HH arrangements are done. Objective - Constitutional Vitals: Vital Signs - 12hr 07/17/17 07/17/17 07/17/17 07:11 07:19 10:58 Temperature 99.8 F H Pulse Rate 121 H Respiratory 18 20 20 Rate Respiratory Rate [Right Knee] Blood Pressure 109/53 O2 Sat by Pulse 93 Oximetry 07/17/17 07/17/17 07/17/17 11:01 11:25 11:58 Temperature 98.6 F Pulse Rate 111 H Respiratory 18 18 Rate Respiratory 18 Rate [Right Knee] Blood Pressure 128/75 O2 Sat by Pulse 99 Oximetry 07/17/17 07/17/17 14:36 15:30 Temperature 99.0 F Pulse Rate 117 H Respiratory 20 18 Rate Respiratory Rate [Right Knee] Blood Pressure 126/58 O2 Sat by Pulse 96 Oximetry - Labs CBC & Chem 7: 07/16/17 04:26 07/16/17 04:26
[2017-07-17] MEDS: PERCOCET 5/325 PO PRN (19:30)
[2017-07-18] MEDS: ROXICODONE PO PRN (03:12)
[2017-07-18] MEDS: NORCO 10/325 PO PRN (07:05)
[2017-07-18] MEDS: NEURONTIN PO SCH (08:10)
[2017-07-18] MEDS: COZAAR PO SCH (10:29)
[2017-07-18] MEDS: CYMBALTA PO SCH (10:30)
[2017-07-18] MEDS: PEPCID PO SCH (10:30)
[2017-07-18] MEDS: FEOSOL PO SCH (10:30)
[2017-07-18] MEDS: HCTZ PO SCH (10:30)
[2017-07-18] MEDS: PAMELOR PO SCH (10:30)
[2017-07-18] MEDS: CLARITIN PO SCH (10:30)
[2017-07-18] MEDS: ELIQUIS PO SCH (10:30)
[2017-07-18] MEDS: LASIX PO SCH (10:30)
[2017-07-18] MEDS: K-DUR PO SCH (10:33)
[2017-07-18] MEDS: COLACE PO SCH (10:33)
[2017-07-18] MEDS: MIRALAX 3350 PO SCH (10:33)
--- NOTE | 2017-07-18 13:38 | Progress Note ---
Assessment and Plan Assessment and plan: --Status post total knee arthroplasty; Continue postoperative care, orthopedic cleared for discharge Home health and home PT --Hypertension; moderate control Continue home medications as before --Gastroesophageal reflux disease; stable on ranitidine --History of depression; continue antidepression medications and supportive care --Allergic rhinitis; symptoms significantly improved with antihistamines --DVT prophylaxis; Eliquis 2.5 mg every 12 hours Plan of care discussed with the patient and his nurse Patient needs to follow with primary care physician for her medical needs Medically stable for discharge Signoff History Interval history: Patient seen and examined medical records reviewed Patient feels better tolerating physical therapy No new complaints Vital signs reviewed stable Nurse reports that orthopedic surgeon has cleared for discharge With home health, pain medications and Eliquis Hospitalist Physical - Constitutional Vitals: Temp Pulse Resp BP Pulse Ox 99.3 F 114 H 18 141/75 95 07/18/17 07:21 07/18/17 07:22 07/18/17 10:00 07/18/17 07:21 07/18/17 07:22 General appearance: Present: no acute distress, well-nourished, obese - EENT Eyes: Present: PERRL, EOM intact - Neck Neck: Present: supple, normal ROM - Respiratory Respiratory effort: normal Respiratory: bilateral: diminished, negative: rales, rhonchi, wheezing - Cardiovascular Rhythm: regular Heart Sounds: Present: S1 & S2 - Extremities Extremities: no ischemia, No edema - Abdominal General gastrointestinal: soft, non-tender, non-distended, normal bowel sounds - Integumentary Integumentary: Present: clear, warm - Psychiatric Psychiatric: appropriate mood/affect, cooperative - Neurologic Neurologic: CNII-XII intact, moves all extremities Results - Labs CBC & Chem 7: 07/16/17 04:26 07/16/17 04:26 Labs: Laboratory Last Values WBC 9.9 K/mm3 (4.5-11.0) 07/16/17 04:26 RBC 3.97 M/mm3 (3.65-5.03) 07/16/17 04:26 Hgb 9.8 gm/dl (10.1-14.3) L 07/16/17 04:26 Hct 31.0 % (30.3-42.9) 07/16/17 04:26 MCV 78 fl (79-97) L 07/16/17 04: MCH 25 pg (28-32) L 07/16/17 04:26 MCHC 31 % (30-34) 07/16/17 04:26 RDW 14.4 % (13.2-15.2) 07/16/17 04:26 Plt Count 233 K/mm3 (140-440) 07/16/17 04:26 Lymph % (Auto) 15.5 % (13.4-35.0) 07/16/17 04:26 Starr % (Auto) 13.6 % (0.0-7.3) H 07/16/17 04:26 Eos % (Auto) 0.1 % (0.0-4.3) 07/16/17 04:26 Baso % (Auto) 0.4 % (0.0-1.8) 07/16/17 04: Lymph # 1.5 K/mm3 (1.2-5.4) 07/16/17 04: Starr # 1.3 K/mm3 (0.0-0.8) H 07/16/17 04:26 Eos # 0.0 K/mm3 (0.0-0.4) 07/16/17 04: Baso # 0.0 K/mm3 (0.0-0.1) 07/16/17 04:26 Seg Neutrophils % 70.4 % (40.0-70.0) H 07/16/17 04: Seg Neutrophils # 7.0 K/mm3 (1.8-7.7) 07/16/17 04: PT 14.3 Sec. (12.2-14.9) 07/15/17 04:33 INR 1.05 (0.87-1.13) 07/15/17 04:33 Sodium 133 mmol/L (137-145) L 07/16/17 04:26 Potassium 4.1 mmol/L (3.6-5.0) 07/16/17 04:26 Chloride 96.6 mmol/L (98-107) L 07/16/17 04:26 Carbon Dioxide 22 mmol/L (22-30) 07/16/17 04:26 Anion Gap 19 mmol/L 07/16/17 04:26 BUN 10 mg/dL (7-17) 07/16/17 04:26 Creatinine 0.7 mg/dL (0.7-1.2) 07/16/17 04:26 Estimated GFR > 60 ml/min 07/16/17 04:26 BUN/Creatinine Ratio 14 % 07/16/17 04:26 Glucose 129 mg/dL (65-100) H 07/16/17 04:26 Calcium 8.9 mg/dL (8.4-10.2) 07/16/17 04:26 Total Bilirubin 0.60 mg/dL (0.1-1.2) 07/16/17 04:26 AST 19 units/L (5-40) 07/16/17 04:26 ALT 17 units/L (7-56) 07/16/17 04:26 Alkaline Phosphatase 52 units/L (35-129) 07/16/17 04:26 Total Protein 6.8 g/dL (6.3-8.2) 07/16/17 04:26 Albumin 3.6 g/dL (3.9-5) L 07/16/17 04:26 Albumin/Globulin Ratio 1.1 % 07/16/17 04:26 Blood Type B POSITIVE 07/14/17 11:55 Antibody Screen Negative 07/14/17 11:55
[2017-07-18 14:30] VITALS: BP 105/50
--- NOTE | 2017-07-19 20:12 | Discharge Summary ---
Providers - Providers Date of Admission: 07/14/17 11:28 Date of discharge: 07/19/17 Attending physician: CHRISTY BRICE 07/14/17 14:53 Consult to Case Management [CONS] Routine Services Needed at Discharge: Home Health Services Professor Of Geography Occupational Therapy Physical Therapy DME Equipment Notified:: DIRECTOR CAMP Consult to Physician [CONS] Routine Comment: NOTIFIED Consulting Provider: BRADY ALFARO Physician Instructions: Reason For Exam: POSTOP MEDICAL MANAGEMENT 07/14/17 14:54 Physical Therapy Evaluation and Treat [CONS] Routine Comment: Reason For Exam: POSTOP TKA 07/16/17 12:11 Consult to Anesthesiology [CONS] Urgent Consulting Provider: DG ANESTHESIA AURA CANTU Reason For Exam: for pain management Primary care physician: KAY SMART Hospitalization Condition: Good Procedures: TKA - post op did well .No complications Hospital course: Assessment and Plan - Patient Problems (1) Hypertension Current Visit: No Status: Chronic Qualifiers: Hypertension type: essential hypertension Qualified Code(s): I10 - Essential (primary) hypertension Plan to address problem: Continue losartan and hydrochlorothiazide (2) GERD (gastroesophageal reflux disease) Current Visit: Yes Status: Chronic Qualifiers: Esophagitis presence: without esophagitis Qualified Code(s): K21.9 - Gastro -esophageal reflux disease without esophagitis Plan to address problem: Continue ranitidine 150 twice a day (3) Depression Current Visit: Yes Status: Chronic Qualifiers: Depression Type: unspecified Qualified Code(s): F32.9 - Major depressive disorder, single episode, unspecified Plan to address problem: Continue Cymbalta 60 mg once a day (4) Allergic rhinitis Current Visit: Yes Status: Chronic Qualifiers: Allergic rhinitis trigger: pollen Allergic rhinitis seasonality: non- seasonal Qualified Code(s): J30.1 - Allergic rhinitis due to pollen Plan to address problem: Continue fexofenadine 180 mg once a day (5) Pedal edema Current Visit: Yes Status: Chronic Plan to address problem: continue Lasix. We will add potassium. (6) History of total knee arthroplasty Current Visit: Yes Status: Acute Qualifiers: Laterality: right Qualified Code(s): Z96.651 - Presence of right artificial knee joint Plan to address problem: Continue physical therapy and pain managem----Post did well.Cont Home PT (7) DVT prophylaxis Current Visit: Yes Status: Acute Plan to address problem: On ELIQUIS Disposition: DC-01 TO HOME OR SELFCARE Time spent for discharge: 31 minutes Core Measure Documentation - Palliative Care Palliative Care/ Comfort Measures: Not Applicable - Core Measures Any of the following diagnoses?: none Exam - Constitutional Vitals: Temp Pulse Resp BP Pulse Ox 98.7 F 111 H 18 105/50 95 07/18/17 12:13 07/18/17 12:13 07/18/17 12:13 07/18/17 12:12 07/18/17 12:13 General appearance: Present: no acute distress, well-nourished - EENT Eyes: Present: PERRL ENT: hearing intact, clear oral mucosa - Neck Neck: Present: supple, normal ROM - Respiratory Respiratory effort: normal Respiratory: bilateral: CTA - Cardiovascular Heart Sounds: Present: S1 & S2. Absent: rub, click - Extremities Extremities: pulses symmetrical, No edema Peripheral Pulses: within normal limits - Abdominal General gastrointestinal: Present: soft, non-tender, non-distended, normal bowel sounds Female genitourinary: Present: normal - Integumentary Integumentary: Present: clear, warm, dry - Musculoskeletal Musculoskeletal: gait normal, strength equal bilaterally - Psychiatric Psychiatric: appropriate mood/affect, intact judgment & insight - Neurologic Neurologic: CNII-XII intact, moves all extremities Plan Weight Bearing Status: Weight Bear as Tolerated Diet: low fat, low cholesterol, low salt Follow up with: KAY SMART MD [Primary Care Provider] - 7 Days CANDELARIO HOGAN MD [Staff Physician] - 7 Days
== END 2017-07-18 14:30 | disposition home health service (06) | DRG 470 ==
LOC: 3A 07-14 11:28 → 3B-SURG 07-14 18:18
PROVIDERS: ADMIT Orthopaedic Surgery; ATTEND Internal Medicine
PROC: 0SRC0J9 Replacement of Right Knee Joint with Synthetic Substitute, Cemented, Open Approach (ICD-10-PCS; principal; 2017-07-14)
DX: M17.11 Unilateral primary osteoarthritis, right knee (principal); E66.01 Morbid (severe) obesity due to excess calories; Z68.35 Body mass index [BMI] 35.0-35.9, adult; K21.9 Gastro-esophageal reflux disease without esophagitis; F32.9 Major depressive disorder, single episode, unspecified; J30.9 Allergic rhinitis, unspecified; N18.9 Chronic kidney disease, unspecified; I12.9 Hypertensive chronic kidney disease with stage 1 through stage 4 chronic kidney disease, or unspecified chronic kidney disease; M25.661 Stiffness of right knee, not elsewhere classified; M21.061 Valgus deformity, not elsewhere classified, right knee; Z88.2 Allergy status to sulfonamides; Z82.49 Family history of ischemic heart disease and other diseases of the circulatory system; Z79.899 Other long term (current) drug therapy; Z79.82 Long term (current) use of aspirin; Z87.01 Personal history of pneumonia (recurrent)
CPT/HCPCS: 36415; 64450; 80048; 80053; 85014; 85018; 85025; 85610; 86850; 86900; 86901; 87116; 88305; C1713; C1776; G8978-GP; G8979-GP; J0690; J1100; J1170; J1885; J2250; J2270; J2405; J2704; J2710; J3010; J7030; J7050

== ENCOUNTER 2017-10-14 12:51 | Outpatient (CLI) | payer MEDICARE ==
--- NOTE | 2017-10-14 16:43 | Cat Scan Report ---
FINAL REPORT EXAM: CT LOWER EXTREMITY RT WO CON HISTORY: PAIN IN RIGHT KNEE TECHNIQUE: Spiral CT scanning of the right knee. No IV contrast administered. Multiplanar reformations. PRIORS: Right knee radiographs, 14 July 2017. FINDINGS: Status post right total knee arthroplasty and considerable beam hardening artifact limit evaluation, but appears grossly intact. Probable tract and support material again noted in distal femoral metaphysis. Diffuse osteopenia and degenerative spurring off the posterolateral tibial plateau and proximal tibiofibular articulation. No acute fracture, dislocation or obvious osseous destruction. Moderate joint effusion. Surrounding peripatellar soft tissue edema. IMPRESSION: 1. Postsurgical and degenerative changes, joint effusion and soft tissue edema. 2. No other acute osseous abnormality.
== END 2017-10-14 12:52 | disposition home or self-care (01) ==
LOC: CT 12:51
PROVIDERS: ATTEND Orthopaedic Surgery
DX: M17.11 Unilateral primary osteoarthritis, right knee (principal); M25.461 Effusion, right knee; M85.88 Other specified disorders of bone density and structure, other site; M79.7 Fibromyalgia; N18.9 Chronic kidney disease, unspecified; Z96.651 Presence of right artificial knee joint; Z98.890 Other specified postprocedural states; Z88.2 Allergy status to sulfonamides
CPT/HCPCS: 36415; 85652; 86140

== ENCOUNTER → 2017-11-04 | Outpatient (CLI) | payer MEDICARE ==
--- NOTE | 2017-11-04 19:48 | Cat Scan Report ---
FINAL REPORT EXAM: CT CHEST WO CON HISTORY: LUNG NODULE TECHNIQUE: Standard unenhanced CT of the chest at 2.5 mm axial increments. Coronal and sagittal reconstruction was also obtained. PRIORS: None. FINDINGS: In the posterior left lower lobe, there is a 4.6 x 8.9 mm uncalcified nodule (axial image 67, series 2). There is an uncalcified rounded nodule in the posterior medial right lung base measuring 8.5 x 8.7 mm (axial image 73, series 2). Several small nodules are present in the right upper lobe and right middle lobe measuring less than 4 mm. Otherwise, there is no evidence for parenchymal infiltrates, vascular congestion, pleural effusion, or pneumothorax. There is no evidence for mediastinal, hilar, or axillary adenopathy. The esophagus is collapsed. The trachea is midline. Cardiovascular structures are within normal limits. Cardiac size and aorta are normal. Images through the lung bases include upper abdomen which show no abnormality of the visualized abdominal viscera. Bony structures show severe degenerative disc narrowing throughout the thoracic spine. No evidence for bony fracture is seen. IMPRESSION: Several nonspecific uncalcified nodules present bilaterally. These should be followed according to Fleischner criteria as noted below. [employer] GUIDELINES FOR MANAGEMENT OF SMALL PULMONARY NODULES DETECTED ON CT SCANS- Nodule Size Low Risk High Risk (mm) < 4 No F/U F/U CT 12 mos if unchanged no further F/U > 4-6 F/U 12 mos Initial F/U CT at if unchanged 6-12 mo then at no further F/U 18-24 mo if no change > 6-8 Initial F/U CT Initial F/U CT at 6-12 mo then at 3-6 mo then at 18-24 mo if at 9-12 and 24 mo no change if no change > 8 F/U CT at around Same as low risk 3, 9, and 24 mo patient dynamic contrast enhanced CT, PET, and / or biopsy Note- Newly detected indeterminate nodule in persons 35 years or older Low-risk patient = Minimal or absent history of smoking and of other known risk factors High risk patient = History of smoking or other known risk factors
== END | disposition home or self-care (01) ==
LOC: CT 11:51
DX: R91.8 Other nonspecific abnormal finding of lung field (principal); M48.04 Spinal stenosis, thoracic region; J44.9 Chronic obstructive pulmonary disease, unspecified; I10 Essential (primary) hypertension; K21.9 Gastro-esophageal reflux disease without esophagitis; M19.90 Unspecified osteoarthritis, unspecified site; F32.9 Major depressive disorder, single episode, unspecified; Z88.2 Allergy status to sulfonamides; Z90.710 Acquired absence of both cervix and uterus
CPT/HCPCS: 71250

== ENCOUNTER 2017-12-02 09:54 | Outpatient (CLI) | payer MEDICARE ==
--- NOTE | 2017-12-03 15:10 | PET Report ---
PET/CT:12/02/17 09:54:00 CLINICAL: Pulmonary nodules. COMPARISON: 11/04/17 CT Chest. That study identifies a 4.6 x 8.9 mm left lower lobe noncalcified nodule, a right lower lobe noncalcified nodule measuring 8.5 x 8.7 mm and several right upper lobe and right middle lobe nodules measuring less than 4 mm. RADIOPHARMACEUTICAL: 13.575mCi F18-FDG. TECHNIQUE- Following intravenous injection of F-18 FDG and an approximately 60 minute uptake period, CT and PET images from the mid skull to the upper thighs were acquired with the patient in the fasted state. No contrast was administered. The CT protocol used for this PET CT study is designed for attenuation correction and anatomic localization of PET abnormalities. This internal sales engineer CT is not desired to produce and cannot replace, [id number] diagnostic CT scans with specific imaging protocols for different body parts and indications. Plasma glucose at the time of this test: 103g/dl. The standardized uptake values (SUV) are normalized to patient body weight and indicate the highest activity concentration (SUV max) in a given disease site. FINDINGS: Brain--Physiologic FDG uptake in the visualized regions of the brain. Neck--Physiologic FDG uptake . Chest--Physiologic FDG uptake in mediastinal blood pool and myocardium. Lungs--Bilateral noncalcified lung nodules as seen on the recent CT. The largest is contiguous to the pleura in the right lower lobe and measures 9 x 7 mm. It demonstrates FDG uptake and SUV 2.9. A second noncalcified 5 mm pleural-based right lower lobe nodule is not FDG avid. A 7 x 5 mm noncalcified non-FDG avid left lower lobe nodule. Several tiny bilateral upper lobe noncalcified lung nodules measuring less than 4 mm. Pleura/pericardium--No abnormal uptake. No pleural effusion. Thoracic nodes--No abnormal uptake. No lymphadenopathy. Hepatobiliary--No abnormal uptake. Liver background SUV mean, as a reference for comparing FDG studies, is 5.9 . No liver lesions are notified by CT. However several suspicious foci of FDG uptake in both right and left hepatic lobes. The most prominent is in the lateral segment of the left lobe with SUV 6.3. Spleen--No abnormal uptake. Pancreas--No abnormal uptake. Adrenal Glands--No abnormal uptake. Kidneys/Ureters/Bladder--No abnormal uptake. Abdominopelvic Nodes--No abnormal uptake. Bowel/Peritoneum/Mesentery--No abnormal uptake. Pelvic organs--No abnormal uptake. Bones/Soft Tissues--No abnormal uptake and no suspicious bone lesions. Other findings: The pancreas is atrophic and fatty replaced. Status post hysterectomy. IMPRESSION-1. Several bilateral noncalcified lung nodules. The most suspicious is a 9 mm right lower lobe nodule with mild FDG uptake. 2. Several foci of FDG uptake in the liver are nonspecific but raise suspicion for possible early metastatic disease. Recommend CT of the liver with contrast for comparison.
== END 2017-12-02 09:55 | disposition home or self-care (01) ==
LOC: PET 09:54
DX: R91.1 Solitary pulmonary nodule (principal); I10 Essential (primary) hypertension; K21.9 Gastro-esophageal reflux disease without esophagitis; M19.90 Unspecified osteoarthritis, unspecified site; Z90.710 Acquired absence of both cervix and uterus
CPT/HCPCS: 78815; 82962; A9552

== ENCOUNTER 2018-01-07 11:14 | Emergency (ER) | payer MEDICARE ==
[2018-01-07 13:24] LABS: Bilirubin,Urine NEG (Negative); Blood,Urine NEG (Negative); Color,Urine Yellow (Yellow); Mucus,Urine FEW /HPF; Protein,Urine <15 mg/dL mg/dL (Negative); Urobilinogen,Urine < 2.0 mg/dL (<2.0); WBC,Urine < 1.0 /HPF (0.0-6.0)
[2018-01-07] MEDS ORDERED: MORPHINE IV ONE (14:08)
[2018-01-07] MEDS ORDERED: ZOFRAN IV ONE (14:08)
--- NOTE | 2018-01-07 14:15 | Emergency Department Report ---
ED General Adult HPI - General Chief complaint: Abdominal Pain Stated complaint: SIDE PAIN Time Seen by Provider: 01/07/18 13:55 Source: patient Mode of arrival: Ambulatory Limitations: No Limitations - History of Present Illness Initial comments: 62-year-old female with left flank pain 6 months, worse over the last 3 days. Patient states she is currently being worked up by PCP to find out the cause of the pain. States she has had CT scans which show "spots" on her lungs and liver. States doctors are unsure if it is cancer at this point in time. Patient states she is supposed to undergo more testing in the coming months. Pain reported by patient today is in the same spot as usual pain, left posterior chest, in flank area. Patient reports shortness of breath when the pain comes. Denies cough, fever, hematuria. Patient reports urinary frequency. States pain relieved with muscle relaxer that she took prior to ED arrival. MD Complaint: left flank pain -: days(s) (3) Location: back, left Radiation: non-radiation Quality: sharp Consistency: constant Improves with: other (muscle relaxer) Worsens with: none, movement Associated Symptoms: denies: cough, fever/chills, nausea/vomiting Treatments Prior to Arrival: other (muscle relaxer) - Related Data Home Medications Medication Instructions Recorded Confirmed Last Taken Cyclobenzaprine [Flexeril] 1 - 2 tab PO PRN PRN 11/17/16 07/06/17 11/16/16 Furosemide [Lasix TAB] 40 mg PO QDAY 11/17/16 07/06/17 11/16/16 Gabapentin 600 mg PO TID 11/17/16 07/14/17 07/13/17 16:00 Nortriptyline [Pamelor] 25 mg PO DAILY 11/17/16 07/14/17 07/13/17 09:00 Prednisone [predniSONE (Martin) ER 5 mg PO QDAY 11/17/16 07/14/17 06/30/17 09:00 TAB] Ranitidine HCl [Zantac 150 MG TAB] 150 mg PO BID 11/17/16 07/14/17 07/12/17 09: 00 cloNIDine [Catapres] 0.1 mg PO PRN PRN 11/17/16 07/14/17 07/12/17 09:00 traMADol [Ultram] 50 mg PO PRN PRN 11/17/16 07/14/17 07/12/17 09:00 Aspirin/Acetaminophen/Caffeine 1 each PO DAILY 07/06/17 07/14/17 06/30/17 09:00 [[employer] Ex-Str Powder Packet] Ferrous Sulfate 324 mg PO DAILY 07/06/17 07/14/17 07/06/17 09:00 Fexofenadine HCl [Tessa Allergy] 180 mg PO DAILY 07/06/17 07/06/17 Unknown Docusate Sodium [Stool Softener] 100 mg PO BID 07/07/17 07/07/17 Unknown Duloxetine HCl [Cymbalta] 60 mg PO DAILY 07/07/17 07/14/17 07/12/17 09:00 Losartan/Hydrochlorothiazide 1 each PO DAILY 07/07/17 07/14/17 07/14/17 10:00 [Losartan-Hctz 100-25 mg Tab] Polyethylene Glycol 3350 1,700 gm PO DAILY 07/07/17 07/14/17 Unknown [Laxaclear] Previous Rx's Medication Instructions Recorded Last Taken Type HYDROcodone/ACETAMINOPHEN [[place] 1 each PO Q6HR PRN #7 tablet 01/07/18 Unknown Rx 5-325 Tablet] Allergies Allergy/AdvReac Type Severity Reaction Status Date / Time Sulfa (Sulfonamide AdvReac Rash, Verified 01/07/18 11:35 Antibiotics) SWELLING OF THE TONGUE ED Review of Systems ROS: Stated complaint: SIDE PAIN Other details as noted in HPI Comment: All other systems reviewed and negative Constitutional: denies: chills, fever Respiratory: shortness of breath. denies: cough Genitourinary: frequency. denies: dysuria, hematuria Musculoskeletal: back pain ED Past Medical Hx - Past Medical History Hx Hypertension: Yes (X 20 YRS) Hx GERD: Yes Hx Renal Disease: Yes (CKD) Hx Arthritis: Yes Hx Headaches / Migraines: Yes (MIGRAINES) Hx HIV: No - Surgical History Past Surgical History?: Yes Additional Surgical History: hysterectomy, , RTKR - Social History Smoking Status: Never Smoker Substance Use Type: Alcohol - Medications Home Medications: Home Medications Medication Instructions Recorded Confirmed Last Taken Type Cyclobenzaprine [Flexeril] 1 - 2 tab PO PRN PRN 11/17/16 07/06/17 11/16/16 History Furosemide [Lasix TAB] 40 mg PO QDAY 11/17/16 07/06/17 11/16/16 History Gabapentin 600 mg PO TID 11/17/16 07/14/17 07/13/17 16:00 History Nortriptyline [Pamelor] 25 mg PO DAILY 11/17/16 07/14/17 07/13/17 09:00 History Prednisone [predniSONE (Martin) ER 5 mg PO QDAY 11/17/16 07/14/17 06/30/17 09:00 History TAB] Ranitidine HCl [Zantac 150 MG TAB] 150 mg PO BID 11/17/16 07/14/17 07/12/17 09: 00 History cloNIDine [Catapres] 0.1 mg PO PRN PRN 11/17/16 07/14/17 07/12/17 09:00 History traMADol [Ultram] 50 mg PO PRN PRN 11/17/16 07/14/17 07/12/17 09:00 History Aspirin/Acetaminophen/Caffeine 1 each PO DAILY 07/06/17 07/14/17 06/30/17 09:00 History [[employer] Ex-Str Powder Packet] Ferrous Sulfate 324 mg PO DAILY 07/06/17 07/14/17 07/06/17 09:00 History Fexofenadine HCl [Tessa Allergy] 180 mg PO DAILY 07/06/17 07/06/17 Unknown History Docusate Sodium [Stool Softener] 100 mg PO BID 07/07/17 07/07/17 Unknown History Duloxetine HCl [Cymbalta] 60 mg PO DAILY 07/07/17 07/14/17 07/12/17 09:00 History Losartan/Hydrochlorothiazide 1 each PO DAILY 07/07/17 07/14/17 07/14/17 10:00 History [Losartan-Hctz 100-25 mg Tab] Polyethylene Glycol 3350 1,700 gm PO DAILY 07/07/17 07/14/17 Unknown History [Laxaclear] HYDROcodone/ACETAMINOPHEN [[place] 1 each PO Q6HR PRN #7 tablet 01/07/18 Unknown Rx 5-325 Tablet] ED Physical Exam - General Limitations: No Limitations General appearance: alert, in no apparent distress - Head Head exam: Present: atraumatic, normocephalic - Eye Eye exam: Present: normal appearance - ENT ENT exam: Present: mucous membranes moist - Neck Neck exam: Present: normal inspection - Respiratory Respiratory exam: Present: normal lung sounds bilaterally. Absent: respiratory distress - Cardiovascular Cardiovascular Exam: Present: normal rhythm, tachycardia - GI/Abdominal GI/Abdominal exam: Present: soft. Absent: tenderness - Extremities Exam Extremities exam: Present: normal inspection - Back Exam Back exam: Present: CVA tenderness (L) - Neurological Exam Neurological exam: Present: alert, oriented X3 - Psychiatric Psychiatric exam: Present: normal affect, normal mood - Skin Skin exam: Present: warm, dry, intact, normal color ED Course Vital Signs 01/07/18 11:31 Temperature 98.6 F Pulse Rate 106 H Respiratory 18 Rate Blood Pressure 141/88 O2 Sat by Pulse 99 Oximetry ED Medical Decision Making - Lab Data Result diagrams: 01/07/18 14:30 01/07/18 14:30 - Radiology Data Radiology results: report reviewed, image reviewed - Medical Decision Making 62-year-old female with chronic left flank pain, worse today. Because patient reports that her physicians are concerned about possible lung cancer, suspicion was high for possible PE. With elevated d-dimer, VQ scan was obtained because unable to obtain IV access for CTA. VQ scan was normal, low possibility for PE. Patient feeling much better at this time. A neuro workup are unremarkable. Pain is likely an acute exacerbation of her chronic pain. We will prescribe pain meds, advised PCP follow-up. - Differential Diagnosis chronic pain, PE, pneumonia Critical care attestation.: If time is entered above; I have spent that time in minutes in the direct care of this critically ill patient, excluding procedure time. ED Disposition Clinical Impression: Chronic left flank pain Disposition: - TO HOME OR SELFCARE Is pt being admited?: No Condition: Stable Instructions: Flank Pain (ED) Prescriptions: HYDROcodone/ACETAMINOPHEN [[place] 5-325 Tablet] 1 each PO Q6HR PRN #7 tablet PRN Reason: pain Referrals: PRIMARY CARE, [Primary Care Provider] - 3-5 Days Time of Disposition: 19:24
[2018-01-07 14:54] LABS: Basophils % (Auto) 0.9 % (0.0-1.8); Eosinophils # (Auto) 0.1 K/mm3 (0.0-0.4); Eosinophils % (Auto) 1.5 % (0.0-4.3); Hematocrit 40.7 % (30.3-42.9); Hemoglobin 12.9 gm/dl (10.1-14.3); Lymphocytes # (Auto) 1.4 K/mm3 (1.2-5.4); Lymphocytes % (Auto) 34.1 % (13.4-35.0); Mean Corpuscular HGB Conc 32 % (30-34); Mean Corpuscular Volume 78 fl (79-97); Monocytes # (Auto) 0.3 K/mm3 (0.0-0.8); Monocytes % (Auto) 6.7 % (0.0-7.3); Platelet Count 276 K/mm3 (140-440); Red Blood Count 5.19 M/mm3 (3.65-5.03)
[2018-01-07 14:57] LABS: Mean Corpuscular Hemoglobin 25 pg (28-32)
[2018-01-07 15:04] LABS: BUN/Creatinine Ratio 18; Blood Urea Nitrogen 14 mg/dL (7-17); Calcium 10.5 mg/dL (8.4-10.2); Hemolysis Index 5
[2018-01-07 15:41] LABS: INR 1.02 (0.87-1.13)
[2018-01-07 15:42] LABS: Partial Thromboplastin Time 48.8 Sec. (24.2-36.6)
--- NOTE | 2018-01-07 16:48 | XRay Report ---
FINAL REPORT EXAM: XR CHEST ROUTINE 2V HISTORY: chest pain TECHNIQUE: Two view chest PA and lateral PRIORS: None. FINDINGS: Cardiac and mediastinal contours are unremarkable. No focal pulmonary infiltrate is identified. No pleural fluid collection seen. Pulmonary vasculature is unremarkable. IMPRESSION: Negative two-view chest
--- NOTE | 2018-01-07 19:10 | Nuclear Medicine Report ---
FINAL REPORT EXAM: NM LUNG SCAN PERF/VENT HISTORY: chest pain TECHNIQUE: Ventilation-perfusion scan Ventilation study performed with 15.6 millicuries of Xe133 Perfusion study performed following intravenous administration 3.8 millicuries technetium 99 MAA PRIORS: Correlated with chest radiograph of same date FINDINGS: There are no perfusion defects identified. Homogeneous distribution seen bilaterally on perfusion scan On ventilation study there is normal symmetric washout of the radiotracer without evidence for focal defect IMPRESSION: Normal. No scintigraphic evidence for pulmonary embolus
[2018-01-07 19:35] VITALS: BP 152/75
== END 2018-01-07 19:33 | disposition home or self-care (01) ==
LOC: ED 11:14
DX: R10.9 Unspecified abdominal pain (principal); I12.9 Hypertensive chronic kidney disease with stage 1 through stage 4 chronic kidney disease, or unspecified chronic kidney disease; K21.9 Gastro-esophageal reflux disease without esophagitis; N18.9 Chronic kidney disease, unspecified; F10.10 Alcohol abuse, uncomplicated; G43.909 Migraine, unspecified, not intractable, without status migrainosus; Z90.710 Acquired absence of both cervix and uterus; Z96.651 Presence of right artificial knee joint; Z88.2 Allergy status to sulfonamides; Z79.82 Long term (current) use of aspirin
CPT/HCPCS: 36415; 71046; 78582; 80048; 81001; 85025; 85379; 85610; 85730; 96374; 96375; 99284; A9540; A9558; J2270; J2405

== ENCOUNTER 2018-03-29 09:41 | Outpatient (CLI) | payer MEDICARE ==
--- NOTE | 2018-03-29 12:30 | Ultrasound Report ---
ULTRASOUND ABDOMEN COMPLETE: TECHNIQUE: Transabdominal ultrasound with color Doppler interrogation. HISTORY: Abnormal PET/CT. COMPARISON: The PET/CT dated 12/02/17. FINDINGS: LIVER: Normal. No liver mass is identified on ultrasound. BILIARY SYSTEM: Normal. PANCREAS: Normal. SPLEEN: Normal. KIDNEYS: Normal. AORTA/IVC: Normal. ASCITES: None. IMPRESSION: Unremarkable exam.
== END 2018-03-29 09:42 | disposition home or self-care (01) ==
LOC: US 09:41
PROVIDERS: ATTEND Internal Medicine Hematology & Oncology
DX: K76.9 Liver disease, unspecified (principal); I10 Essential (primary) hypertension; E66.9 Obesity, unspecified; K21.9 Gastro-esophageal reflux disease without esophagitis; M19.90 Unspecified osteoarthritis, unspecified site; Z90.710 Acquired absence of both cervix and uterus
CPT/HCPCS: 76700

== ENCOUNTER 2018-06-16 10:52 | Outpatient (CLI) | payer MEDICARE ==
--- NOTE | 2018-06-16 17:18 | Cat Scan Report ---
PROCEDURE: CT ABDOMEN W CON TECHNIQUE: Computerized axial tomography of the abdomen and pelvis was performed after the IV inject ion of iodinated nonionic contrast. Coronal and sagittal reconstruction was also performed. CONTRAST: Oral and intravenous contrast given HISTORY: LUNG MASS COMPARISONS: Ultrasound RUQ 03/29/2018, PET/CT 12/02/2017. FINDINGS: In the lower pole of the kidneys, there are several tiny subcentimeter hypodense foci, too small to c haracterize. These are not visible on the prior unenhanced PET/CT. Within the abdomen, the liver, spleen, pancreas, gallbladder, and adrenal glands are unremarkable. No evidence for retroperitoneal or pelvic lymphadenopathy is seen. The bowel loops have normal caliber. No soft tissue mass, fluid collection, inflammatory change, or free air is seen within the abdomen o r pelvis. The appendix is visualized. Within the pelvis, the bladder is unremarkable. The uterus has been surgically removed. No evidence f or mass or lymphadenopathy is seen in the pelvis. Images through the upper abdomen include the lung bases which demonstrate noncalcified nonspecific no dules in each lung base posteriorly. On the left, the nodule measures 9 x 5 mm (axial image 19/204, s eries 4). On the right, the nodule measures 9 x 8 mm (axial image 26/204, series 4). There is a pleur al-based density laterally in the right lower lobe which is nonspecific measuring 4 x 7 mm (axial christine ge 22/204, series 4). These are all stable. There is a small pericardial effusion again noted. Bony structures show severe degenerative disc narrowing from L3 through S1 and throughout the lower t horacic spine. There is significant bilateral neural foraminal narrowing at L4-L5 due to posterior sp urring. IMPRESSION: 1.No acute intra-abdominal process noted. . 2. Multiple tiny hypodensities in the lower pole of each kidney, statistically likely cysts. However, these are too small to characterize 3. Multiple small uncalcified nodules in each lung base which appears stable compared to prior PET sc an 4. Small Pericardial effusion again noted This document is electronically signed by Sharon Walker MD., June 16 2018 05:16:38 PM ET
--- NOTE | 2018-06-16 20:04 | Cat Scan Report ---
PROCEDURE: CT CHEST W CON HISTORY: LUNG MASS FINDINGS: Unenhanced CT of the chest was performed followed by contrast-enhanced CT of the chest obta ined following the intravenous administration of iodinated contrast. Correlation is made to the CT sc an obtained earlier in the day as well as the PET/CT examination of December 02, [address] examination of November 04, 2017. As noted on the abdominal CT of earlier in the day, there are multiple pulmonary nodules. There is a right upper lobe nodule, postcontrast image 67, 0.3 cm unchanged There is a right middle lobe nodule, sagittal postcontrast image 88, 0.4 cm. Second right middle lobe nodule is seen, sagittal image 92, 0.4 cm, unchanged. There is a nodule in the superior aspect of the right lower lobe, image 48, 0.7 x 0.5 cm, unchanged. There is a right lower lobe subpleural nodule, image 71 of the current exam, 0.8 x 0.4 cm unchanged. Right lower lobe pulmonary nodule, image 76 of the current exam, 1.1 x 0.8 cm, not changed when measu red in similar fashion on the PET/CT examination or prior chest CT. There is a left lower lobe pulmonary nodule, image 69 of the current chest CT, 0.9 x 0.5 cm, previous ly measuring 0.8 x 0.5 cm. There is a left lower lobe nodule, image 65 of the current exam, 0.4 cm, previously 0.3 cm None of these nodules appear to be glucose-avid on PET scan. The thyroid gland is unremarkable. There is a trace pericardial effusion inferiorly the heart, sagittal postcontrast image 206, 0.5 cm i n thickness. There is no pleural effusion. No significant lymphadenopathy is seen in the chest. The thyroid gland is unremarkable. The thoracic aorta is normal in size. An abdominal CT has been performed and has been reported separately. IMPRESSION: Bilateral pulmonary nodules. Most of these are not changed in size in comparison to prior chest CT of November 04, 2017, but 2 left lower lobe nodules appear minimally larger. Follow-up chest CT may be considered in approximately 6 months or as clinically indicated. This document is electronically signed by Chris Dumont MD., June 16 2018 08:01:51 PM ET
== END 2018-06-16 10:53 | disposition home or self-care (01) ==
LOC: CT 10:52
PROVIDERS: ATTEND Internal Medicine Hematology & Oncology
DX: I31.3 Pericardial effusion (noninflammatory) (principal); M48.07 Spinal stenosis, lumbosacral region; I10 Essential (primary) hypertension; K21.9 Gastro-esophageal reflux disease without esophagitis; N28.89 Other specified disorders of kidney and ureter; Z90.710 Acquired absence of both cervix and uterus; M19.90 Unspecified osteoarthritis, unspecified site
CPT/HCPCS: 71260; 74160; Q9967